=== PATIENT | male | born 1950 | race Two or more races ===

== ENCOUNTER 2020-06-25 19:10 | Inpatient (IN) | payer MEDICARE, OTHER ==
[~2020-06-25] VITALS: Ht 170.2 cm; Wt 55.8 kg
[2020-06-25] MEDS ORDERED: SODIUM CHLORIDE 0.9% 1,000 ML IV ONE (19:45)
[2020-06-25] MEDS ORDERED: AZITHROMYCIN 500 MG in DEXT 5% WATER 250 ML IV ONE (20:00)
[2020-06-25] MEDS ORDERED: CEFTRIAXONE 1 G PREMIX 50 ML IV ONE (20:00)
[2020-06-25 21:02] LABS: BASOPHILS % 0.3 % (0.0-2.0); EOSINOPHILS % 1.1 % (0.0-5.0); HEMOGLOBIN. 16.2 g/dL (14.0-18.0); LYMPHOCYTES % 12.5 % (20.0-50.0); MEAN CORPUSCULAR HEMOGLOBIN 31.4 pg (28.0-32.0); MEAN CORPUSCULAR VOLUME 92.9 fL (80.0-94.0); MEAN PLATELET VOLUME 8.7 fl (7.4-10.4); MONOCYTES % 11.7 % (2.0-8.0); NEUTROPHILS % 74.4 % (40.0-76.0); PLATELET 345 x1000/uL (130-400); RED BLOOD CELL COUNT 5.17 mill/uL (4.7-6.1); RED CELL DISTRIBUTION WIDTH 13.6 % (11.6-14.6)
[2020-06-25 21:07] LABS: CHLORIDE 102 mEq/L (98-107)
[2020-06-25 21:18] LABS: D-DIMER 11.19 mg/L FEU (<0.50); INR 1.3; PARTIAL THROMBOPLASTIN TIME 28.7 sec (23.4-31.0); PROTHROMBIN TIME 13.6 sec (9.6-11.0)
[2020-06-25] MEDS ORDERED: POTASSIUM CHLORIDE 20MEQ TABLET SR PO ONE (21:30)
[2020-06-25] MEDS ORDERED: ASPIRIN 81MG TABLET PO ONE (21:30)
[2020-06-25] MEDS ORDERED: ENOXAPARIN 80MG/0.8ML SYR SUBCUT ONE (21:30)
[2020-06-25] MEDS ORDERED: DEXAMETHASONE 10 MG/ML VIAL IV ONE (21:45)
[2020-06-26] MEDS ORDERED: CEFTRIAXONE 1 G PREMIX 50 ML IV NR (03:30)
[2020-06-26] MEDS ORDERED: CEFTRIAXONE 1,000 MG in DEXTROSE 5% WATER 50 ML IV SCH (03:30)
[2020-06-26] MEDS ORDERED: IOHEXOL-350 100 ML BOTTLE ONE (05:33)
[2020-06-26] MEDS ORDERED: ACETAMINOPHEN 325MG TABLET PO PRN (06:45)
[2020-06-26] MEDS: FAMOTIDINE 20MG TABLET PO SCH ×2 (09:16→21:29)
[2020-06-26] MEDS: DEXAMETHASONE 4MG TABLET PO SCH (09:17)
[2020-06-26] MEDS: ENOXAPARIN 40MG/0.4ML SYR SUBCUT SCH (09:19)
[2020-06-26 13:08] VITALS: BP 133/88
[2020-06-26] MEDS ORDERED: PNEUMOCOCCAL 23-VAL P-SAC VAC 0.5 ML IM ONE (15:00)
[2020-06-26] MEDS ORDERED: INFLUENZA VACCINE 05/PF 0.5 ML VIAL IM ONE (15:00)
[2020-06-26] MEDS ORDERED: POTASSIUM CHLORIDE 20MEQ TABLET SR PO NR (18:15)
[2020-06-26 20:20] VITALS: BP 141/94
[2020-06-26] MEDS: AZITHROMYCIN 500 MG in DEXT 5% WATER 250 ML IV SCH (21:32)
[2020-06-26 23:35] VITALS: BP 138/95
[2020-06-27 04:00] VITALS: BP 138/98
[2020-06-27] MEDS ORDERED: CEFTRIAXONE 1,000 MG in DEXTROSE 5% WATER 50 ML IV SCH (04:00)
[2020-06-27] MEDS: CEFTRIAXONE 1,000 MG in DEXTROSE 5% WATER 50 ML IV SCH (05:24)
[2020-06-27 08:00] VITALS: BP 120/87
[2020-06-27] MEDS: DEXAMETHASONE 4MG TABLET PO SCH (09:13)
[2020-06-27] MEDS: FAMOTIDINE 20MG TABLET PO SCH ×2 (09:13→21:15)
[2020-06-27] MEDS: ENOXAPARIN 40MG/0.4ML SYR SUBCUT SCH (09:13)
[2020-06-27] MEDS: ALBUTEROL 6.7GM HFA INHALER ORI SCH ×2 (10:20→15:04)
[2020-06-27 12:00] VITALS: BP 121/83
[2020-06-27 16:00] VITALS: BP 132/87
[2020-06-27 20:00] VITALS: BP 129/78
[2020-06-27] MEDS: AZITHROMYCIN 500 MG in DEXT 5% WATER 250 ML IV SCH (21:15)
[2020-06-28] VITALS: BP 131/88
[2020-06-28 04:00] VITALS: BP 127/81
[2020-06-28 06:51] LABS: BASOPHILS % 0.2 % (0.0-2.0); HEMATOCRIT. 41.2 % (42.0-52.0); HEMOGLOBIN. 14.3 g/dL (14.0-18.0); LYMPHOCYTES % 10.1 % (20.0-50.0); MEAN CORPUSCULAR HEMOGLOBIN 31.7 pg (28.0-32.0); MEAN CORPUSCULAR VOLUME 91.6 fL (80.0-94.0); MEAN PLATELET VOLUME 8.2 fl (7.4-10.4); MONOCYTES % 7.9 % (2.0-8.0); NEUTROPHILS % 81.8 % (40.0-76.0); PLATELET 379 x1000/uL (130-400)
[2020-06-28 06:56] LABS: CHLORIDE 109 mEq/L (98-107)
[2020-06-28 08:00] VITALS: BP 132/80
[2020-06-28] MEDS: DEXAMETHASONE 4MG TABLET PO SCH (08:57)
[2020-06-28] MEDS: FAMOTIDINE 20MG TABLET PO SCH ×2 (08:57→20:18)
[2020-06-28] MEDS: CEFTRIAXONE 1,000 MG in DEXTROSE 5% WATER 50 ML IV SCH (08:57)
[2020-06-28] MEDS: ENOXAPARIN 40MG/0.4ML SYR SUBCUT SCH (08:58)
[2020-06-28 12:00] VITALS: BP 126/84
[2020-06-28] MEDS ORDERED: IPRATROPIUM/ALBUTEROL 0.5-3(2.5)MG/3ML NEB HHN PRN (13:45)
[2020-06-28] MEDS ORDERED: GUAIFENESIN 200MG/10ML SUGAR FREE UDC PO PRN (14:30)
[2020-06-28 16:00] VITALS: BP 127/87
[2020-06-28 20:00] VITALS: BP 127/84
[2020-06-28] MEDS ORDERED: AZITHROMYCIN 500 MG TABLET PO SCH (21:00)
[2020-06-29] VITALS: BP 121/85
[2020-06-29 04:00] VITALS: BP 114/80
[2020-06-29 05:54] LABS: EOSINOPHILS % 0.1 % (0.0-5.0); HEMATOCRIT. 43.9 % (42.0-52.0); HEMOGLOBIN. 14.7 g/dL (14.0-18.0); LYMPHOCYTES % 14.6 % (20.0-50.0); MEAN CORPUSCULAR HEMOGLOBIN 31.1 pg (28.0-32.0); MEAN CORPUSCULAR VOLUME 92.7 fL (80.0-94.0); MEAN PLATELET VOLUME 8.2 fl (7.4-10.4); MONOCYTES % 10.7 % (2.0-8.0); NEUTROPHILS % 73.6 % (40.0-76.0); PLATELET 365 x1000/uL (130-400); RED BLOOD CELL COUNT 4.74 mill/uL (4.7-6.1); RED CELL DISTRIBUTION WIDTH 13.6 % (11.6-14.6)
[2020-06-29 06:19] LABS: CHLORIDE 109 mEq/L (98-107)
[2020-06-29 08:00] VITALS: BP 129/81
[2020-06-29] MEDS ORDERED: AZIT500T8 PO ×2 (08:17→08:18)
[2020-06-29] MEDS ORDERED: MED4 MT (08:17)
[2020-06-29] MEDS ORDERED: FAMO20TA8 PO (08:17)
[2020-06-29] MEDS ORDERED: METR500T MT (08:21)
[2020-06-29] MEDS: CEFTRIAXONE 1,000 MG in DEXTROSE 5% WATER 50 ML IV SCH (08:24)
[2020-06-29] MEDS: ENOXAPARIN 40MG/0.4ML SYR SUBCUT SCH (08:24)
[2020-06-29] MEDS: FAMOTIDINE 20MG TABLET PO SCH (08:24)
[2020-06-29] MEDS: DEXAMETHASONE 4MG TABLET PO SCH (08:24)
[2020-06-29 09:42] LABS: BG CARBOXYHEMOGLOBIN 0.2 % (0.5-1.5); BG DEOXYHEMOGLOBIN 6.6 % (0.0-5.0); BG HCO3 ACT 22.7 mmol/L (22.0-26.0); BG METHEMOGLOBIN 0.2 % (0.0-1.5); BG OXYGEN SATURATION 93.4 % (92.0-98.5); BG PCO2 31.9 mmHg (35.0-45.0); BG PO2 63.3 mmHg (75.0-100.0); BG SAMPLE SITE RIGHT RADIAL; BG TOTAL HEMOGLOBIN 16.2 g/dL (12.0-18.0); BG VENT MODE ROOM AIR
[2020-06-29 11:49] VITALS: BP 123/85
[2020-06-29 12:00] VITALS: BP 123/85
== END 2020-06-29 13:05 | disposition home or self-care (01) | DRG 871 ==
LOC: ER 19:10 → MICUSO 21:01 → 7EST 06-26 03:29 → 5WST 06-27 15:19
PROVIDERS: ADMIT Internal Medicine; ATTEND Internal Medicine
DX: A41.89 Other specified sepsis (principal); J96.01 Acute respiratory failure with hypoxia; J11.00 Influenza due to unidentified influenza virus with unspecified type of pneumonia; E44.1 Mild protein-calorie malnutrition; Z68.1 Body mass index [BMI] 19.9 or less, adult; B97.89 Other viral agents as the cause of diseases classified elsewhere; E87.6 Hypokalemia; Z20.828 Contact with and (suspected) exposure to other viral communicable diseases; D72.810 Lymphocytopenia; Z79.899 Other long term (current) drug therapy
CPT/HCPCS: 36415; 36600; 71045; 71275; 80048; 80053; 82375; 82805; 83605; 83880; 84484; 85025; 85379; 87635; 87804; 90686; 90732; 93005; 93970; 99285; J0456; J0696; J1100; J1650; J7030; J7060; J8540; Q9967